=== PATIENT | female | born 1985 | race Caucasian/White ===

== ENCOUNTER 2021-04-19 01:55 | Emergency (ER) | payer SELFPAY ==
[~2021-04-19] VITALS: Ht 154.9 cm; Wt 108.9 kg
[2021-04-19 02:00] VITALS: BP 108/49
--- NOTE | 2021-04-19 02:05 | NUR ---
Ambulatory to bed 9, change to a gown.
--- NOTE | 2021-04-19 02:18 | NUR ---
REPORT RECEIVED FROM LAURA SHARP. CONTINUITY OF PT CARE AT THIS TIME.
--- NOTE | 2021-04-19 02:26 | NUR ---
35 YO/F BIB SELF W C/O RUQ ABD PAIN 8/10 PRESSURE LIKE NON RAD, + BURPING, + CHILLS BEGINNING TODAY AT APPROX NOON. PT DENIES ANY CHEST PAIN, SOB, FEVERS, N/V/D/C. VSS. BREATHING EVEN AND UNLABORED. PT SITTING ON BED LOCKED IN LOWEST POSITION. SON AT BEDSIDE. PMH:DENIES ALLERGIES:DENIES
--- NOTE | 2021-04-19 02:28 | NUR ---
Dr. Clement at bedside to exam patient.
[2021-04-19 02:40] LABS: APPEARANCE,URINE CLEAR (CLEAR); BILIRUBIN,URINE NEGATIVE (NEGATIVE); BLOOD, URINE TRACE-I (NEGATIVE); COLOR,URINE YELLOW (YELLOW); LEUKOCYTE ESTERASE ,URINE NEGATIVE (NEGATIVE); NITRITE, URINE NEGATIVE (NEGATIVE); UGLUCOSE NEGATIVE (NEGATIVE)
[2021-04-19 02:48] LABS: RBC,URINE 0-5 /HPF (0-5); WBC,URINE 0-5 /HPF (0-5)
[2021-04-19 02:54] LABS: BASOPHILS # (AUTO) 0.1 K/uL (0.00-0.22); BASOPHILS % (AUTO) 0.8 % (0.0-2.0); EOSINOPHILS # (AUTO) 0.1 K/uL (0-0.4); EOSINOPHILS % (AUTO) 1.1 % (0.0-4.0); HEMATOCRIT 37.9 % (36-48); HEMOGLOBIN 12.9 g/dL (12.0-16.0); LYMPHOCYTES # (AUTO) 2.6 K/uL (2.5-16.5); LYMPHOCYTES % (AUTO) 28.9 % (20.5-51.1); MEAN CORPUSCULAR HEMOGLOBIN 29 pg (27-31); MEAN CORPUSCULAR HGB CONC 34 g/dL (33-37); MEAN CORPUSCULAR VOLUME 84.6 fL (80-94); MONOCYTES # (AUTO) 0.5 K/uL (0.8-1.0); NEUTROPHILS # (AUTO) 5.8 K/uL (1.8-7.7); NEUTROPHILS % (AUTO) 64.2 % (42.2-75.2); PLATELET COUNT (AUTO) 276 K/uL (140-450); RED BLOOD CELL COUNT(AUTO) 4.49 MIL/uL (4.20-5.40)
[2021-04-19] MEDS: ONDANSETRON 4 MG/2 ML VIAL IVP ONE ×2 (02:58→04:29)
[2021-04-19] MEDS: MORPHINE SULFATE 2 MG/ML SYR IVP ONE (02:58)
[2021-04-19] MEDS: NACL 0.9% 1,000 ML IV SCH (02:59)
--- NOTE | 2021-04-19 03:04 | NUR ---
Ultrasound at bedside.
[2021-04-19 03:06] LABS: ALBUMIN 3.5 g/dL (3.4-5.0); ANION GAP 12.3 (8-16); CARBON DIOXIDE 26.3 mmol/L (21-32); CREATININE 0.7 mg/dL (0.6-1.3); POTASSIUM 3.6 mmol/L (3.5-5.1); TOTAL BILIRUBIN 0.2 mg/dL (0.0-1.0)
--- NOTE | 2021-04-19 03:37 | NUR ---
PT APPEARS TO BE RESTING W EYES CLOSED IN SUPINE POSITION. BED LOCKED IN LOWEST POSITION W X1 SIDERAIOL UP. CONNECTED TO MONITOR W VSS. BREATHING EVEN AND UNLABORED. NAD NOTED, WILL CONTINUE TO MONITOR.
[2021-04-19] MEDS ORDERED: cefTRIAXone 1,000 MG VIAL ONE (04:05)
--- NOTE | 2021-04-19 04:13 | NUR ---
pt c/o of abdominal pain 09/22. ermd made aware.
[2021-04-19] MEDS ORDERED: ALUMINUM HYD/MAG/SIMETHICONE 30 ML UDC ONE (04:14)
[2021-04-19] MEDS ORDERED: DICYCLOMINE HCL LIQUID 10 MG/5 ML UDC ONE (04:15)
[2021-04-19] MEDS ORDERED: CEPH-588 PO (04:27)
[2021-04-19] MEDS ORDERED: PANT40EC PO (04:27)
[2021-04-19] MEDS: ALUMINUM HYD/MAG/SIMETHICONE 30 ML, DICYCLOMINE HCL LIQUID 20 MG, LIDOCAINE VISCOUS 2% ... PO ONE ×3 (04:28)
[2021-04-19] MEDS: KETOROLAC 30 MG/ML VIAL IVP ONE (04:29)
[2021-04-19] MEDS: PANTOPRAZOLE 40 MG INJ VIAL IVP ONE (04:30)
--- NOTE | 2021-04-19 04:51 | NUR ---
PT REPORTS PAIN HAS RESOLVED AT THIS TIME. NO SYMPTOMS AT THIS TIME.
[2021-04-19 04:53] VITALS: BP 116/57
--- NOTE | 2021-04-19 04:53 | NUR ---
Patient discharged with v/s stable. Written and verbal after care instructions given and explained. Patient alert, oriented and verbalized understanding of instructions. Ambulatory with steady gait. All questions addressed prior to discharge. ID band removed. Patient advised to follow up with PMD. Rx of PROTONIX, KEFLEX given. Patient educated on indication of medication including possible reaction and side effects. Opportunity to ask questions provided and answered.
== END 2021-04-19 04:53 | disposition home or self-care (01) ==
LOC: MED 01:55
DX: N39.0 Urinary tract infection, site not specified (principal); R10.13 Epigastric pain; Z79.899 Other long term (current) drug therapy
CPT/HCPCS: 36415; 74176; 76705; 80053; 81001; 81025; 83690; 84703; 85025; 87086; 96361; 96365; 96375; 99285; C9113; J0696; J1885; J2270; J2405; J7030; Q0092

== ENCOUNTER 2022-02-20 12:00 | Emergency (ER) | payer MEDICAID ==
[~2022-02-20] VITALS: Ht 162.6 cm; Wt 95.3 kg
[~2022-02-20 12:00] MED LIST: CEPH-588 PO; PANT40EC PO
[2022-02-20 12:36] VITALS: BP 139/80
--- NOTE | 2022-02-20 12:49 | NUR ---
PT PRESENTS SELF TO ER WITH C/O VANE ABDO PAIN X3 DAYS. PT STATES SHE WAS PREVIOUSLY DX WTIH ENLARGED FIBROIDS TO UTERUS. GAVE PT URINE CUP TO COLLECT SAMPLE. PT IN LOBBY AWAITING TO BE SEEN BY
[2022-02-20] MEDS ORDERED: DICYCLOMINE HCL LIQUID 20 MG, ALUMINUM HYD/MAG/SIMETHICONE 30 ML, LIDOCAINE VISCOUS 2% ... PO ONE ×6 (14:20→16:10)
[2022-02-20] MEDS ORDERED: HYDROcodone/APAP 10/325 MG 1 TAB TAB PO STA (14:20)
[2022-02-20 14:44] LABS: APPEARANCE,URINE CLEAR (CLEAR); BILIRUBIN,URINE NEGATIVE (NEGATIVE); BLOOD, URINE NEGATIVE (NEGATIVE); COLOR,URINE YELLOW (YELLOW); LEUKOCYTE ESTERASE ,URINE NEGATIVE (NEGATIVE); NITRITE, URINE NEGATIVE (NEGATIVE); PH,URINE 5.5 (5.0-9.0); UGLUCOSE NEGATIVE (NEGATIVE)
[2022-02-20 14:48] LABS: BASOPHILS # (AUTO) 0.1 K/uL (0.00-0.22); EOSINOPHILS # (AUTO) 0.1 K/uL (0-0.4); EOSINOPHILS % (AUTO) 1.6 % (0.0-4.0); HEMATOCRIT 33.2 % (36-48); HEMOGLOBIN 11.3 g/dL (12.0-16.0); LYMPHOCYTES # (AUTO) 2.7 K/uL (2.5-16.5); LYMPHOCYTES % (AUTO) 36.3 % (20.5-51.1); MEAN CORPUSCULAR HEMOGLOBIN 29 pg (27-31); MEAN CORPUSCULAR HGB CONC 34 g/dL (33-37); MEAN CORPUSCULAR VOLUME 84.4 fL (80-94); MONOCYTES # (AUTO) 0.4 K/uL (0.8-1.0); MONOCYTES % (AUTO) 5.1 % (1.7-9.3); NEUTROPHILS # (AUTO) 4.1 K/uL (1.8-7.7); PLATELET COUNT (AUTO) 285 K/uL (140-450); RED BLOOD CELL COUNT(AUTO) 3.94 MIL/uL (4.20-5.40); RED CELL DISTRIBUTION WIDTH 13.8 % (11.6-13.7); WHITE BLOOD COUNT (AUTO) 7.4 K/uL (4.8-10.8)
[2022-02-20 15:09] LABS: ANION GAP 12.9 (8-16); CARBON DIOXIDE 29.2 mmol/L (21-32); CREATININE 0.7 mg/dL (0.6-1.3); POTASSIUM 4.1 mmol/L (3.5-5.1)
[2022-02-20 15:15] LABS: ALBUMIN 3.6 g/dL (3.4-5.0); TOTAL BILIRUBIN 0.4 mg/dL (0.0-1.0)
[2022-02-20] MEDS ORDERED: HYDROcodone/APAP 10/325 MG 1 TAB TAB ONE (16:01)
[2022-02-20] MEDS ORDERED: ALUMINUM HYD/MAG/SIMETHICONE 30 ML UDC ONE ×2 (16:03→16:11)
[2022-02-20] MEDS ORDERED: DICYCLOMINE HCL LIQUID 10 MG/5 ML UDC ONE (16:11)
[2022-02-20] MEDS ORDERED: HYDR-5080 PO (17:28)
[2022-02-20] MEDS ORDERED: NALO4SPR NS (17:28)
== END 2022-02-20 17:47 | disposition home or self-care (01) ==
LOC: MED 12:00
DX: R10.9 Unspecified abdominal pain (principal); Z79.899 Other long term (current) drug therapy
CPT/HCPCS: 36415; 80053; 81003; 81025; 85025; 99284